=== PATIENT | female | born 1985 | race Caucasian/White ===

== ENCOUNTER 2016-10-14 08:28 | Emergency (ER) | payer OTHER, BC ==
[2016-10-14 08:54] VITALS: BP 126/84
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
== END 2016-10-14 09:13 | disposition home or self-care (01) ==
LOC: VM.ED 08:28
DX: S80.12XA Contusion of left lower leg, initial encounter (principal); V89.2XXA Person injured in unspecified motor-vehicle accident, traffic, initial encounter
CPT/HCPCS: 99283